=== PATIENT | female | born 1995 | race Caucasian/White ===

== ENCOUNTER 2018-04-11 20:38 | Emergency (ER) | payer OTHER ==
[2018-04-11] MEDS ORDERED: methylPREDNISolone SOD SUCCI 125 MG/2 ML VIAL IV STA (20:50)
[2018-04-11] MEDS ORDERED: FAMOTIDINE 20 MG/2 ML VIAL IV STA (20:50)
[2018-04-11] MEDS ORDERED: diphenhydrAMINE 50 MG/ML 1 ML VIAL IVP STA (20:50)
--- NOTE | 2018-04-11 21:22 | ED ---
Skin/Abscess/FB HPI - General Chief complaint: Skin/Abscess/Foreign Body Stated complaint: allergic reaction-throat is starting to close Time Seen by Provider: 04/11/18 20:49 Source: patient, RN notes reviewed Mode of arrival: ambulatory Limitations: no limitations - History of Present Illness Initial comments: This a 22-year-old female presents emergency from chief complaint ALLERGIC reaction. Patient states she started on Bactrim on Friday states over the last day or so she developed symptoms but today she started feeling sensation in her throat. She felt there was difficulty to breathe. Patient states that she is very itchy and has a rash over her face and torso region. She's never had this reaction the past. Patient states she was placed on Bactrim by her sausage tier for tachycardia. Patient denies any other complaints. She did try taking some Benadryl but is having minimal relief. - Related Data Previous Rx's Medication Instructions Recorded Famotidine [Pepcid] 20 mg PO BID #10 tablet 04/11/18 Allergies Allergy/AdvReac Type Severity Reaction Status Date / Time cefixime [From Suprax] Allergy Unknown Verified 04/11/18 20:47 minocycline Allergy Unknown Verified 04/11/18 20:47 sulfamethoxazole Allergy Swelling Verified 04/11/18 20:47 [From Bactrim] trimethoprim [From Bactrim] Allergy Swelling Verified 04/11/18 20:47 Review of Systems ROS Statement: Those systems with pertinent positive or pertinent negative responses have been documented in the HPI. ROS Other: All systems not noted in ROS Statement are negative. Past Medical History Past Medical History: No Reported History History of Any Multi-Drug Resistant Organisms: None Reported Additional Past Surgical History / Comment(s): wisdom teeth. Past Psychological History: No Psychological Hx Reported Smoking Status: Never smoker Past Alcohol Use History: None Reported Past Drug Use History: None Reported General Exam Limitations: no limitations General appearance: alert, in no apparent distress, anxious Head exam: Present: atraumatic, normocephalic, normal inspection Eye exam: Present: normal appearance, PERRL, EOMI. Absent: scleral icterus, conjunctival injection, periorbital swelling ENT exam: Present: normal exam, normal oropharynx, mucous membranes moist Neck exam: Present: normal inspection. Absent: tenderness, meningismus, lymphadenopathy Respiratory exam: Present: normal lung sounds bilaterally. Absent: respiratory distress, wheezes, rales, rhonchi, stridor Cardiovascular Exam: Present: normal rhythm, tachycardia, normal heart sounds. Absent: systolic murmur, diastolic murmur, rubs, gallop, clicks GI/Abdominal exam: Present: soft, normal bowel sounds. Absent: distended, tenderness, guarding, rebound, rigid Skin exam: Present: warm, dry, intact, normal color. Absent: rash Course Vital Signs 04/11/18 04/11/18 20:43 21:56 Temperature 96.2 F L 99.4 F Pulse Rate 122 H 96 Respiratory 20 16 Rate Blood Pressure 127/84 110/60 O2 Sat by Pulse 100 100 Oximetry Medical Decision Making - Medical Decision Making 22-year-old female presents from for ALLERGIC reaction to Bactrim. Patient states she feels improved at this time. Patient will be discharged and advised to take her prescription of steroids as given by urgent care. Patiently advised to continue Benadryl every 6 hours and will be prescribed absent. Disposition Clinical Impression: Allergic reaction caused by a drug Disposition: HOME SELF-CARE Condition: Stable Instructions: Antibiotic Medication Allergy (ED) Additional Instructions: Take Benadryl 50 mg every 6 hours as directed. Start your prescription of steroids as directed. Please return to the Emergency Department if symptoms worsen or any other concerns. Prescriptions: Famotidine [Pepcid] 20 mg PO BID #10 tablet Is patient prescribed a controlled substance at d/c from ED?: No Referrals: Ollie Bautista DO [Primary Care Provider] - 1-2 days
[2018-04-11 21:59] VITALS: BP 110/60; PULSE 96; RESP 16; TEMP 99.4
== END 2018-04-11 22:35 | disposition home or self-care (01) ==
LOC: EC 20:38
DX: R06.02 Shortness of breath (principal); R21 Rash and other nonspecific skin eruption; T37.0X5A Adverse effect of sulfonamides, initial encounter; Z88.1 Allergy status to other antibiotic agents; Z88.2 Allergy status to sulfonamides
CPT/HCPCS: 99283; 96374; 96375 ×2; J1200; J2930